=== PATIENT | female | born 1950 | race African-American/Black ===

== ENCOUNTER 2020-01-21 22:27 | Inpatient (IN) | payer MEDICARE, BC ==
[~2020-01-21] VITALS: Ht 167.6 cm; Wt 105.2 kg
[2020-01-21] MEDS ORDERED: CEFTRIAXONE 1 G PREMIX 50 ML IV ONE (23:15)
[2020-01-21] MEDS ORDERED: AZITHROMYCIN 500 MG in DEXT 5% WATER 250 ML IV ONE (23:15)
[2020-01-21] MEDS ORDERED: VANCOMYCIN 1 G PREMIX 200 ML IV ONE (23:15)
[2020-01-22 00:32] LABS: BG BASE EXCESS 0.8 mmol/L (-2.0-2.0); BG CARBOXYHEMOGLOBIN 2.8 % (0.5-1.5); BG DEOXYHEMOGLOBIN 8.4 % (0.0-5.0); BG FRACTION INSPIRED OXYGEN 40; BG HCO3 ACT 27.1 mmol/L (22.0-26.0); BG METHEMOGLOBIN 0.1 % (0.0-1.5); BG OXYGEN SATURATION 91.3 % (92.0-98.5); BG OXYHEMOGLOBIN 88.7 % (94.0-97.0); BG PCO2 50.7 mmHg (35.0-45.0); BG PH 7.346 (7.350-7.450); BG SAMPLE SITE RIGHT RADIAL; BG TOTAL HEMOGLOBIN 12.6 g/dL (12.0-18.0); BG VENT MODE NASAL CANNULA
[2020-01-22 01:27] LABS: HEMATOCRIT. 39.3 % (36.0-48.0); HEMOGLOBIN. 12.2 g/dL (12.0-16.0); MEAN CORPUSCULAR HEMOGLOBIN 30.2 pg (28.0-32.0); MEAN PLATELET VOLUME 8.1 fl (7.4-10.4); PLATELET 95 x1000/uL (130-400); RED BLOOD CELL COUNT 4.06 mill/uL (4.2-5.4); RED CELL DISTRIBUTION WIDTH 18.1 % (11.6-14.6)
[2020-01-22 01:35] LABS: CHLORIDE 99 mEq/L (98-107)
[2020-01-22 01:57] LABS: INR 1.2; PROTHROMBIN TIME 12.8 sec (9.6-11.0)
[2020-01-22 02:03] LABS: NUCLEATED RED BLOOD CELLS 9 /100 WBC; PLATELET ESTIMATE DECREASED
[2020-01-22] MEDS ORDERED: VANCOMYCIN 1 G PREMIX 200 ML IV ONE (14:15)
[2020-01-22] MEDS ORDERED: PIPERACILLIN/TAZ 3.375G PREMIX 50 ML IV ONE (14:15)
[2020-01-22 17:00] VITALS: BP 113/69
[2020-01-22] MEDS ORDERED: CEFEPIME 1,000 MG in DEXTROSE 5% WATER 50 ML IV SCH (18:00)
[2020-01-22 20:41] VITALS: BP 99/43
[2020-01-22] MEDS: METOPROLOL TARTRATE 50MG TABLET PO SCH (21:00)
[2020-01-22] MEDS ORDERED: NIFEDIPINE XL 60MG TAB PO SCH (22:00)
[2020-01-22] MEDS: TACROLIMUS 1MG CAPSULE PO SCH (22:20)
[2020-01-22] MEDS: POTASSIUM-SODIUM PHOSPHATE POWDER PACKET PO SCH (23:10)
[2020-01-23] VITALS (7 sets, daily range): BP systolic 102–118; BP diastolic 40–55
[2020-01-23] MEDS ORDERED: PROG1 MT (02:06)
[2020-01-23] MEDS ORDERED: PRED5SOL2 PO (02:06)
[2020-01-23] MEDS ORDERED: CARV25TA47 PO (02:06)
[2020-01-23] MEDS ORDERED: VALA500T55 PO (02:06)
[2020-01-23] MEDS ORDERED: NIFE-32 MT (02:06)
[2020-01-23] MEDS ORDERED: PRED5TAB PO (02:06)
[2020-01-23] MEDS ORDERED: MYCO250C PO (02:06)
[2020-01-23] MEDS ORDERED: PANT40TA4 MT (02:06)
[2020-01-23] MEDS ORDERED: VALG450T3 PO (02:06)
[2020-01-23] MEDS ORDERED: [UNRECOGNIZED DRUG - CODE] PO (02:06)
[2020-01-23] MEDS ORDERED: BUME1TAB8 MT (02:06)
[2020-01-23] MEDS ORDERED: BUME2TAB8 MT (02:06)
[2020-01-23] MEDS ORDERED: DAPS100T PO (02:06)
[2020-01-23] MEDS ORDERED: *PATIENT'S OWN MEDICATION STORAGE XX SCH (03:15)
[2020-01-23 06:31] LABS: MEAN CORPUSCULAR HEMOGLOBIN 30.4 pg (28.0-32.0); MEAN CORPUSCULAR VOLUME 96.2 fL (81.0-99.0); PLATELET 82 x1000/uL (130-400); RED BLOOD CELL COUNT 3.95 mill/uL (4.2-5.4); RED CELL DISTRIBUTION WIDTH 17.6 % (11.6-14.6)
[2020-01-23] MEDS: PANTOPRAZOLE 40MG DR TABLET PO SCH (07:07)
[2020-01-23 07:11] LABS: CHLORIDE 100 mEq/L (98-107)
[2020-01-23 07:22] LABS: PHOSPHORUS 7.3 mg/dL (2.5-4.9)
[2020-01-23 07:24] LABS: CREATINE KINASE 84 IU/L (26-192)
[2020-01-23] MEDS: PREDNISONE 5MG TABLET PO SCH (08:31)
[2020-01-23] MEDS: METOPROLOL TARTRATE 50MG TABLET PO SCH (08:31)
[2020-01-23] MEDS: POTASSIUM CHLORIDE 10MEQ TABLET SR PO SCH (08:31)
[2020-01-23] MEDS: FLUCONAZOLE 100MG TABLET PO SCH (08:31)
[2020-01-23] MEDS: TACROLIMUS 1MG CAPSULE PO SCH ×2 (08:32→17:52)
[2020-01-23] MEDS: VALGANCICLOVIR HYDROCHLORIDE 450MG TABLET PO SCH (08:32)
[2020-01-23] MEDS: POTASSIUM-SODIUM PHOSPHATE POWDER PACKET PO SCH ×2 (13:50→20:16)
[2020-01-23] MEDS: CEFEPIME 1,000 MG in DEXTROSE 5% WATER 50 ML IV SCH (14:30)
[2020-01-23] MEDS ORDERED: NIFEDIPINE XL 30MG TAB PO SCH (17:00)
[2020-01-23] MEDS ORDERED: POTASSIUM CHLORIDE 20MEQ TABLET SR PO NR (18:45)
[2020-01-23] MEDS: FILGRASTIM-TBO 480 MCG/0.8 ML SYRINGE SQ SCH (21:13)
[2020-01-23] MEDS: METOPROLOL TARTRATE 25MG TABLET PO SCH (21:22)
[2020-01-24] VITALS: BP 118/49
[2020-01-24 04:00] VITALS: BP 132/60
[2020-01-24 06:19] LABS: EOSINOPHILS % 1.3 % (0.0-5.0); HEMATOCRIT. 39.2 % (36.0-48.0); HEMOGLOBIN. 12.3 g/dL (12.0-16.0); LYMPHOCYTES % 16.9 % (20.0-50.0); MEAN CORPUSCULAR HEMOGLOBIN 30.3 pg (28.0-32.0); MEAN CORPUSCULAR VOLUME 96.8 fL (81.0-99.0); MEAN PLATELET VOLUME 8.1 fl (7.4-10.4); MONOCYTES % 9.6 % (2.0-8.0); NEUTROPHILS % 70.2 % (40.0-76.0); PLATELET 78 x1000/uL (130-400); RED BLOOD CELL COUNT 4.05 mill/uL (4.2-5.4); RED CELL DISTRIBUTION WIDTH 17.3 % (11.6-14.6)
[2020-01-24 06:46] LABS: CHLORIDE 101 mEq/L (98-107)
[2020-01-24] MEDS: PANTOPRAZOLE 40MG DR TABLET PO SCH (06:48)
[2020-01-24 06:57] LABS: PHOSPHORUS 7.9 mg/dL (2.5-4.9)
[2020-01-24 08:00] VITALS: BP 99/48
[2020-01-24] MEDS: METOPROLOL TARTRATE 25MG TABLET PO SCH ×2 (09:00→22:06)
[2020-01-24] MEDS: POTASSIUM CHLORIDE 10MEQ TABLET SR PO SCH (09:08)
[2020-01-24] MEDS: FLUCONAZOLE 100MG TABLET PO SCH (09:09)
[2020-01-24] MEDS: TACROLIMUS 1MG CAPSULE PO SCH ×2 (09:10→16:24)
[2020-01-24] MEDS: POTASSIUM-SODIUM PHOSPHATE POWDER PACKET PO SCH (09:10)
[2020-01-24] MEDS: PREDNISONE 5MG TABLET PO SCH (09:10)
[2020-01-24 12:00] VITALS: BP 119/48
[2020-01-24] MEDS ORDERED: LIDOCAINE HCL 1% 20ML VIAL (Pyxis) INJ ONE (12:01)
[2020-01-24] MEDS ORDERED: SODIUM BICARBONATE 4% (2.4MEQ) 5ML VIAL IV ONE (12:01)
[2020-01-24] MEDS: CEFEPIME 1,000 MG in DEXTROSE 5% WATER 50 ML IV SCH (14:33)
[2020-01-24 16:00] VITALS: BP 122/67
[2020-01-24] MEDS: MYCOPHENOLATE MOFETIL 500MG TABLET PO SCH (16:24)
[2020-01-24 20:00] VITALS: BP 123/54
[2020-01-24] MEDS: FILGRASTIM-TBO 480 MCG/0.8 ML SYRINGE SQ SCH (22:06)
[2020-01-25 00:20] VITALS: BP 128/53
[2020-01-25 04:30] VITALS: BP 138/57
[2020-01-25] MEDS: PANTOPRAZOLE 40MG DR TABLET PO SCH (06:08)
[2020-01-25 07:22] LABS: CLARITY URINE TURBID (CLEAR); COLOR URINE YELLOW (YELLOW); KETONES URINE NEGATIVE (NEGATIVE); LEUKOCYTE ESTERASE URINE NEGATIVE (NEGATIVE); NITRITE URINE NEGATIVE (NEGATIVE); OCCULT BLOOD URINE 3+ (NEGATIVE); PROTEIN URINE 1+ (NEGATIVE); SPECIFIC GRAVITY URINE 1.017 (1.005-1.030); UROBILINOGEN URINE 0.2 E.U./dL (0.2-1.0)
[2020-01-25 07:39] LABS: HEMATOCRIT 40.3 % (36.0-48.0); HEMOGLOBIN 12.5 g/dL (12.0-16.0); MEAN CORPUSCULAR HEMOGLOBIN 30.1 pg (28.0-32.0); MEAN CORPUSCULAR VOLUME 96.9 fL (81.0-99.0); PLATELET 69 x1000/uL (130-400); RED BLOOD CELL COUNT 4.16 mill/uL (4.2-5.4); RED CELL DISTRIBUTION WIDTH 17.4 % (11.6-14.6)
[2020-01-25 08:00] VITALS: BP 115/41
[2020-01-25] MEDS: POTASSIUM CHLORIDE 10MEQ TABLET SR PO SCH (08:44)
[2020-01-25] MEDS: FLUCONAZOLE 100MG TABLET PO SCH (08:44)
[2020-01-25] MEDS: TACROLIMUS 1MG CAPSULE PO SCH ×2 (08:44→17:02)
[2020-01-25] MEDS: PREDNISONE 5MG TABLET PO SCH (08:44)
[2020-01-25] MEDS: MYCOPHENOLATE MOFETIL 500MG TABLET PO SCH ×2 (08:44→17:01)
[2020-01-25] MEDS: METOPROLOL TARTRATE 25MG TABLET PO SCH (08:45)
[2020-01-25 12:00] VITALS: BP 142/64
[2020-01-25] MEDS: CEFEPIME 1,000 MG in DEXTROSE 5% WATER 50 ML IV SCH (14:39)
[2020-01-25 16:00] VITALS: BP 127/30
[2020-01-25 20:00] VITALS: BP 153/56
[2020-01-25] MEDS: AMLODIPINE 2.5MG TABLET PO SCH (20:36)
[2020-01-26 00:30] VITALS: BP 129/39
[2020-01-26 04:30] VITALS: BP 126/57
[2020-01-26] MEDS: PANTOPRAZOLE 40MG DR TABLET PO SCH (06:15)
[2020-01-26 06:21] LABS: CHLORIDE 106 mEq/L (98-107)
[2020-01-26 06:30] LABS: HEMATOCRIT. 39.6 % (36.0-48.0); HEMOGLOBIN. 12.4 g/dL (12.0-16.0); MEAN CORPUSCULAR HEMOGLOBIN 30.1 pg (28.0-32.0); MEAN CORPUSCULAR VOLUME 96.3 fL (81.0-99.0); PLATELET 64 x1000/uL (130-400); RED BLOOD CELL COUNT 4.12 mill/uL (4.2-5.4); RED CELL DISTRIBUTION WIDTH 17.8 % (11.6-14.6)
[2020-01-26 08:48] VITALS: BP 145/60
[2020-01-26] MEDS: TACROLIMUS 1MG CAPSULE PO SCH ×2 (08:53→17:46)
[2020-01-26] MEDS: POTASSIUM CHLORIDE 10MEQ TABLET SR PO SCH (08:53)
[2020-01-26] MEDS: MYCOPHENOLATE MOFETIL 500MG TABLET PO SCH (08:54)
[2020-01-26] MEDS: FLUCONAZOLE 100MG TABLET PO SCH (08:54)
[2020-01-26] MEDS: VALGANCICLOVIR HYDROCHLORIDE 450MG TABLET PO SCH (08:54)
[2020-01-26] MEDS: AMLODIPINE 2.5MG TABLET PO SCH (08:55)
[2020-01-26] MEDS: PREDNISONE 5MG TABLET PO SCH (09:11)
[2020-01-26 12:00] VITALS: BP 136/57
[2020-01-26] MEDS: CEFEPIME 1,000 MG in DEXTROSE 5% WATER 50 ML IV SCH (14:00)
[2020-01-26 16:32] VITALS: BP 132/52
[2020-01-26 17:02] VITALS: BP 159/88
[2020-01-26] MEDS ORDERED: SEVELAMER CARBONATE 800 MG TABLET PO SCH (17:50)
[2020-01-26 22:15] LABS: PLATELET ESTIMATE DECREASED
== END 2020-01-26 18:28 | disposition short-term general hospital (02) | DRG 682 ==
LOC: ER 22:27 → EDBEDREQ 01-22 14:45 → EDBEDREQSVC 01-22 14:45 → ENRESERV 01-22 16:06 → 7EST 01-22 17:33 → 6WST 01-23 22:32
PROVIDERS: ADMIT Internal Medicine; ATTEND Internal Medicine
PROC: 0TB03ZX Excision of Right Kidney, Percutaneous Approach, Diagnostic (ICD-10-PCS; principal; 2020-01-24)
PROC: 5A1D70Z Performance of Urinary Filtration, Intermittent, Less than 6 Hours Per Day (ICD-10-PCS; 2020-01-26)
DX: N17.9 Acute kidney failure, unspecified (principal); J96.01 Acute respiratory failure with hypoxia; T86.11 Kidney transplant rejection; G93.40 Encephalopathy, unspecified; E87.2 Acidosis; I12.0 Hypertensive chronic kidney disease with stage 5 chronic kidney disease or end stage renal disease; N18.6 End stage renal disease; E11.22 Type 2 diabetes mellitus with diabetic chronic kidney disease; E11.65 Type 2 diabetes mellitus with hyperglycemia; E66.01 Morbid (severe) obesity due to excess calories; I27.20 Pulmonary hypertension, unspecified; E83.39 Other disorders of phosphorus metabolism; K21.9 Gastro-esophageal reflux disease without esophagitis; D64.9 Anemia, unspecified; D69.6 Thrombocytopenia, unspecified; I35.0 Nonrheumatic aortic (valve) stenosis; Y83.0 Surgical operation with transplant of whole organ as the cause of abnormal reaction of the patient, or of later complication, without mention of misadventure at the time of the procedure; Z20.828 Contact with and (suspected) exposure to other viral communicable diseases; Z79.4 Long term (current) use of insulin; Z68.37 Body mass index [BMI] 37.0-37.9, adult; Z79.899 Other long term (current) drug therapy; Z95.3 Presence of xenogenic heart valve; Z87.01 Personal history of pneumonia (recurrent); D72.819 Decreased white blood cell count, unspecified
CPT/HCPCS: 36415; 36600; 71045; 76942; 80048; 80053; 80197; 81003; 82375; 82550; 82570; 82728; 82805; 83605; 83615; 83735; 83880; 84100; 84145; 84156; 84443; 84484; 85025; 85027; 85651; 86140; 87070; 87635; 88305; 88346; 88348; 93005; 93306; 96365; 96366; 96368; 99285; C1893; J0456; J0692; J0696; J1442; J2543; J3370; J3490; J7040; J7060; J7507; J7512; J7517